=== PATIENT | female | born 1990 | race Asian ===

== ENCOUNTER 2018-11-21 10:25 | Emergency (ER) | payer OTHER ==
[2018-11-21 11:14] LABS: ABSOLUTE EOSINOPHILS # (AUTO) 0.2 10^3/uL (0.0-0.6); ABSOLUTE LYMPHOCYTES (AUTO) 0.9 10^3/uL (0.5-4.7); ABSOLUTE MONOCYTES (AUTO) 0.4 10^3/uL (0.1-1.4); ABSOLUTE NEUT (AUTO) 3.8 10^3/uL (1.7-8.2); BASOPHILS % (AUTO) 0.3 % (0-2); EOSINOPHILS % (AUTO) 4.1 % (0-6); HEMATOCRIT 39.6 % (36.0-47.0); HEMOGLOBIN 13.8 g/dL (12.0-15.5); LYMPHOCYTES % (AUTO) 16.6 % (13-45); MEAN CORPUSCULAR HEMOGLOBIN 30.3 pg (27.0-33.4); MEAN CORPUSCULAR HGB CONC 34.9 g/dL (32.0-36.0); MEAN CORPUSCULAR VOLUME 87 fl (80-97); MONOCYTES % (AUTO) 7.8 % (3-13); PLATELET COUNT 375 10^3/uL (150-450); RED BLOOD COUNT 4.56 10^6/uL (3.72-5.28); RED CELL DISTRIBUTION WIDTH 12.3 % (11.5-14.0); SEGMENTED NEUTROPHILS % (AUTO) 71.2 % (42-78); TOTAL CELLS COUNTED % (AUTO) 100 %; WHITE BLOOD COUNT 5.3 10^3/uL (4.0-10.5)
[2018-11-21 11:20] LABS: APPEARANCE,URINE SLIGHTLY-CLOUDY; BILIRUBIN,URINE NEGATIVE (NEGATIVE); COLOR,URINE STRAW; GLUCOSE, URINE NEGATIVE (NEGATIVE); KETONES,URINE NEGATIVE (NEGATIVE); LEUKOCYTE ESTERASE,URINE TRACE (NEGATIVE); NITRITE,URINE NEGATIVE (NEGATIVE); PROTEIN,URINE NEGATIVE (NEGATIVE); URINE SPECIFIC GRAVITY 1.004; UROBILINOGEN,URINE NEGATIVE mg/dL (<2.0)
[2018-11-21 11:21] LABS: ALANINE AMINOTRANSFERASE 32 U/L (9-52); ALBUMIN 4.9 g/dL (3.5-5.0); ALKALINE PHOSPHATASE 71 U/L (38-126); ANION GAP 10 (5-19); ASPARTATE AMINO TRANSFERASE 26 U/L (14-36); BILIRUBIN,DIRECT 0.1 mg/dL (0.0-0.4); BILIRUBIN,TOTAL 0.4 mg/dL (0.2-1.3); BLOOD UREA NITROGEN 8 mg/dL (7-20); CALCIUM 9.4 mg/dL (8.4-10.2); CARBON DIOXIDE 29 mmol/L (22-30); CHLORIDE 104 mmol/L (98-107); GLUCOSE 99 mg/dL (75-110); POTASSIUM 3.7 mmol/L (3.6-5.0); SODIUM 142.5 mmol/L (137-145); TOTAL PROTEIN 7.9 g/dL (6.3-8.2)
[2018-11-21 11:23] LABS: ACETAMINOPHEN < 10 ug/mL (10-30); ALCOHOL < 10 mg/dL (NONE DETECTED); SALICYLATE < 1.0 mg/dL (2.0-20.0)
--- NOTE | 2018-11-21 11:35 | ER Document Report ---
ED General - General Chief Complaint: Overdose Stated Complaint: POSSIBLE OVERDOSE Time Seen by Provider: 11/21/18 10:43 Primary Care Provider: PEACE TUCKER FNP [Primary Care Provider] - Follow up as needed Notes: Patient is a 27-year-old female with history of depression that presents to the emergency department for chief complaint of intentional overdose. Patient states that she took a handful of pills combined of gabapentin Prozac, and shortly after 911 was called, EMS arrived and gave the patient activated charcoal, which she vomited up approximately a dozen pills. She states she did this because she recently found out that her had an affair, and she is been dealing with depression for some time, and has not been compliant with her medication, and this triggered her to attempt suicide today. She has had at least 7 attempts and threats in the past, she did try to hang herself in the past, but the rope broke. She denies inpatient psychiatric admissions in the past. She reports that the gabapentin was not prescribed to her, is prescribed to her rescue dog. Patient states she feels slightly fatigued at this time, but otherwise no acute complaints. Past Medical History: Depression Past Surgical History: Tonsillectomy Social History: Denies tobacco, alcohol or drug use Family History: Reviewed and noncontributory for presenting illness Allergies: Reviewed, see documented allergy list. REVIEW OF SYSTEMS: Other than noted above, the 12 point review of systems was reviewed with the patient and were negative, all pertinent findings are included in the HPI. PHYSICAL EXAMINATION: Vital signs reviewed, nursing noted reviewed. GENERAL: Well-appearing, well-nourished and tearful on exam HEAD: Atraumatic, normocephalic. EYES: Eyes appear normal, extraocular movements intact, sclera anicteric, conjunctiva are normal. ENT: nares patent, oropharynx clear without exudates. Moist mucous membranes. NECK: Normal range of motion, supple without lymphadenopathy LUNGS: Breath sounds clear to auscultation bilaterally and equal. No wheezes rales or rhonchi. HEART: Regular rate and rhythm without murmurs ABDOMEN: Soft, nontender, normoactive bowel sounds. No rebound, guarding, or rigidity. No masses appreciated. EXTREMITIES: Nontender, good range of motion, no pitting or edema. NEUROLOGICAL: No focal neurological deficits. Moves all extremities spontaneously Motor and sensory grossly intact on exam. PSYCH: Tearful, dysphoric mood, but appropriate SKIN: Warm, Dry, normal turgor, no rashes or lesions noted on exposed skin Past Medical History - Social History Smoking Status: Current Every Day Smoker Family History: Reviewed & Not Pertinent Patient has suicidal ideation: No Patient has homicidal ideation: No Renal/ Medical History: Denies: Hx Peritoneal Dialysis Psychiatric Medical History: Reports: Hx Depression Course - Re-evaluation Re-evalutation: Patient seen and examined, vital signs reviewed. Medical screening testing was ordered including bloodwork, EKG, and toxicology. Results of testing were reviewed. Testing demonstrated unremarkable blood work, toxicology and urinalysis, EKG as noted. Patient has been stable from a hemodynamic standpoint. Poison control was notified by nursing, they recommended observation, patient's been at her baseline mental status, no EKG abnormalities noted, with gabapentin and Prozac, patient did receive charcoal, she believes she took about 20 tablets, and vomited up approximately 12 of those tablets with the charcoal, per EMS. I feel that she can be medically cleared at this point. At this point I feel that the patient is medically cleared and can be further evaluated from a psychiatric standpoint for final disposition from the emergency department. Patient updated on plan of care. Laboratory 11/21/18 11/21/18 11/21/18 10:15 10:15 10:41 WBC RBC Hgb Hct MCV MCH MCHC RDW Plt Count Seg Neutrophils % Lymphocytes % Monocytes % Eosinophils % Basophils % Absolute Neutrophils Absolute Lymphocytes Absolute Monocytes Absolute Eosinophils Absolute Basophils Sodium 142.5 Potassium 3.7 Chloride 104 Carbon Dioxide 29 Anion Gap 10 BUN 8 Creatinine 0.66 Est GFR ( Amer) > 60 Est GFR (Non-Af Amer) > 60 Glucose 99 Calcium 9.4 Total Bilirubin 0.4 Direct Bilirubin 0.1 Neonat Total Bilirubin Not Reportable Neonat Direct Bilirubin Not Reportable Neonat Indirect Bili Not Reportable AST 26 ALT 32 Alkaline Phosphatase 71 Total Protein 7.9 Albumin 4.9 Serum HCG, Qual Urine Color STRAW Urine Appearance SLIGHTLY-CLOUDY Urine pH 7.0 Ur Specific [place] 1.004 Urine Protein NEGATIVE Urine Glucose (UA) NEGATIVE Urine Ketones NEGATIVE Urine Blood NEGATIVE Urine Nitrite NEGATIVE Urine Bilirubin NEGATIVE Urine Urobilinogen NEGATIVE Ur Leukocyte Esterase TRACE H Urine WBC (Auto) 0 Urine RBC (Auto) 0 Urine Bacteria (Auto) TRACE Squamous Epi Cells Auto 6 Urine Mucus (Auto) RARE Urine Ascorbic Acid NEGATIVE Salicylates < 1.0 L Urine Opiates Screen NEGATIVE Urine Methadone Screen NEGATIVE Acetaminophen < 10 L Ur Barbiturates Screen NEGATIVE Ur Phencyclidine Scrn NEGATIVE Ur Amphetamines Screen NEGATIVE U Benzodiazepines Scrn NEGATIVE Urine Cocaine Screen NEGATIVE U Marijuana (THC) Screen NEGATIVE Serum Alcohol < 10 11/21/18 11/21/18 10:41 10:41 WBC 5.3 RBC 4.56 Hgb 13.8 Hct 39.6 MCV 87 MCH 30.3 MCHC 34.9 RDW 12.3 Plt Count 375 Seg Neutrophils % 71.2 Lymphocytes % 16.6 Monocytes % 7.8 Eosinophils % 4.1 Basophils % 0.3 Absolute Neutrophils 3.8 Absolute Lymphocytes 0.9 Absolute Monocytes 0.4 Absolute Eosinophils 0.2 Absolute Basophils 0.0 Sodium Potassium Chloride Carbon Dioxide Anion Gap BUN Creatinine Est GFR ( Amer) Est GFR (Non-Af Amer) Glucose Calcium Total Bilirubin Direct Bilirubin Neonat Total Bilirubin Neonat Direct Bilirubin Neonat Indirect Bili AST ALT Alkaline Phosphatase Total Protein Albumin Serum HCG, Qual NEGATIVE Urine Color Urine Appearance Urine pH Ur Specific [place] Urine Protein Urine Glucose (UA) Urine Ketones Urine Blood Urine Nitrite Urine Bilirubin Urine Urobilinogen Ur Leukocyte Esterase Urine WBC (Auto) Urine RBC (Auto) Urine Bacteria (Auto) Squamous Epi Cells Auto Urine Mucus (Auto) Urine Ascorbic Acid Salicylates Urine Opiates Screen Urine Methadone Screen Acetaminophen Ur Barbiturates Screen Ur Phencyclidine Scrn Ur Amphetamines Screen U Benzodiazepines Scrn Urine Cocaine Screen U Marijuana (THC) Screen Serum Alcohol - Laboratory Result Diagrams: 11/21/18 10:41 11/21/18 10:41 Laboratory results interpreted by me: 11/21/18 11/21/18 10:15 10:41 Ur Leukocyte Esterase TRACE H Salicylates < 1.0 L Acetaminophen < 10 L - EKG Interpretation by Me Additional EKG results interpreted by me: EKG demonstrates sinus rhythm with a ventricular rate of 87 bpm, borderline r ight axis deviation, QTC 443 ms, no evidence of acute ischemia on this EKG. Discharge - Discharge Clinical Impression: Suicide attempt Overdose Qualifiers: Encounter type: initial encounter Injury intent: intentional self-harm Qualified Code(s): T50.902A - Poisoning by unspecified drugs, medicaments and biological substances, intentional self-harm, initial encounter Condition: Stable Disposition: PSYCH HOSP/UNIT Referrals: PEACE TUCKER FNP [Primary Care Provider] - Follow up as needed
[2018-11-21 12:28] LABS: URINE AMPHETAMINES SCREEN NEGATIVE; URINE BARBITURATES SCREEN NEGATIVE; URINE BENZODIAZEPINES SCREEN NEGATIVE; URINE COCAINE SCREEN NEGATIVE; URINE MARIJUANA (THC) SCREEN NEGATIVE; URINE METHADONE SCREEN NEGATIVE; URINE PHENCYCLIDINE SCREEN NEGATIVE
--- NOTE | 2018-11-21 13:12 | PSYCHOLOGICAL NOTE ---
Psych Note - Psych Note Date seen by psych provider: 11/21/18 Time seen by psych provider: 11:20 Psych Note: Reason for Consult: Intentional Overdose Consent Permissions: , Jaime, Patient arrived to [facility] ED via EMS after intentional overdose on Prozac and gabapentin. Patient reports that she took all the Prozac she had left and some gabapentin after she found out her of 10 years was unfaithful. She reports that they have been having difficulties and that she has to "deal with stuff all the time"however learning that her was unfaithful was "just too much." She reports that her and her have been having difficulties and while they were texting back and forth that she believes that she may have text him that she took the medication. She states that she believes he is the one who called 911. She discloses that she is seen by her primary care provider for the medication however has not started therapy yet reporting she has an appointment tomorrow. When asked if she is glad that her called 911 she reports "really indifferent about it honestly." Clinician spoke with patient's , Jaime, who reported that they were texting and arguing back and forth. He reports that she told him she took all of her Prozac when I asked her how much she stated a handful and stated that she also took some gabapentin. He reports he called 911 when he tried calling her and she sounded lethargic. He states that he works all the wounds needs very and knew that that was the fastest way to get her help. He reports that the patient has had multiple times in the past of making suicidal comments however his it only had one previous attempt approximately 1-1/2 to 2 years ago where she attempted to hang herself; "the rope did not hold though." He denies the patient is ever received inpatient psychiatric treatment before and receives her medications from her primary care provider. He reports that she did not take them regularly and they are currently going through a separation so stress levels are high. He confirms they have 3 children however they were at school during today's events. Patient is alert and orientated to person, place, time and circumstance. Patient is currently demonstrating flat mood and affect however patient clearly was tearful previously with current puffy eyes, mascara running, etc. Patient endorses intentional overdose. Patient denies homicidal ideation. Delusions are absent behaviors congruent with an intact reality based presentation i.e. organized and linear thought process. Eye contact is fair. Conversational speech is within normal rate, tone and prosody. Intellectual ability appears to be within the average range. Attention and concentration are fair. Insight, judgment, impulse control are poor. Medication recommendations at this time 311 (3 2.9) unspecified depressive disorder V61.10 (Z63.0) relationship to stress with spouse Pression\\plan: Patient is recommended for IVC. Patient endorses intentional overdose with intent to harm herself after learning her of 10 years was unfaithful. Patient provider presents very flat and when asked if she is glad 911 was called was brought in she reports "really indifferent about it honestly." Patient will be reevaluated. Dr. Qiu was consulted and care management of this patient; attending physicians in agreement with recommendations and disposition.
--- NOTE | 2018-11-22 08:08 | EKG REPORT ---
SEVERITY:- BORDERLINE ECG - SINUS RHYTHM BORDERLINE RIGHT AXIS DEVIATION BORDERLINE T ABNORMALITIES, ANTERIOR LEADS : Confirmed by: Destinee Garcia MD 22-Nov-2018 08:07:41
== END 2018-11-21 14:30 ==
LOC: ER 10:25
DX: T42.6X2A Poisoning by other antiepileptic and sedative-hypnotic drugs, intentional self-harm, initial encounter (principal); T43.222A Poisoning by selective serotonin reuptake inhibitors, intentional self-harm, initial encounter; Y92.009 Unspecified place in unspecified non-institutional (private) residence as the place of occurrence of the external cause; F32.9 Major depressive disorder, single episode, unspecified; F17.200 Nicotine dependence, unspecified, uncomplicated; Z63.0 Problems in relationship with spouse or partner
CPT/HCPCS: 36415; 80053; 80307; 81001; 84703; 85025; 93005; 93010; 99285